=== PATIENT | male | born 1960 | race Hispanic/Latino ===

== ENCOUNTER 2018-12-23 07:45 | Day surgery (SDC) | payer OTHER, MEDICARE ==
[2018-12-23] VITALS (14 sets, daily range): BP systolic 146–202; BP diastolic 72–98
[~2018-12-23] VITALS: Ht 180.3 cm; Wt 85.7 kg
[~2018-12-23 07:45] MED LIST: INSU100I24 SQ; LINA5TAB PO; LISI-617 PO; METF-444 PO; METH2.5T6 PO; MINO100C2 PO; OXYM30MI9 NS
[2018-12-23] MEDS ORDERED: LIDOCAINE PF 2% 5ML ABBOJECT ONE (09:16)
[2018-12-23] MEDS ORDERED: SUCCINYLCHOLINE 200MG/10ML SYR ONE (09:16)
[2018-12-23] MEDS ORDERED: GLYCOPYRROLATE 1 MG/5 ML SYRINGE ONE (09:17)
[2018-12-23] MEDS ORDERED: PROPOFOL 10 MG/ML 20ML VIAL IV ONE (09:17)
[2018-12-23] MEDS ORDERED: NEOSTIGMINE 5MG/5ML SYR IV ONE (09:17)
[2018-12-23] MEDS ORDERED: DEXAMETHASONE SOD PHOSPHATE 10MG/ML 1ML VIAL ONE (09:17)
[2018-12-23] MEDS ORDERED: ROCURONIUM 10MG/1ML SYR 10 MG/ML ML ONE (09:18)
[2018-12-23] MEDS ORDERED: MIDAZOLAM HCL 1 MG/ML 2ML VIAL ONE (09:18)
[2018-12-23] MEDS ORDERED: FENTANYL CITRATE PF 50 MCG/1 ML 2ML VIAL ONE (09:19)
[2018-12-23] MEDS ORDERED: SODIUM CHLORIDE 0.9% 1000ML 1,000 ML IV ONE (09:19)
[2018-12-23] MEDS ORDERED: CEFAZOLIN SODIUM 1 GM VIAL ONE (09:19)
[2018-12-23] MEDS ORDERED: CLINDAMYCIN 900 MG/D5% WATER 50 ML IV ONE (09:27)
[2018-12-23] MEDS ORDERED: CLINDAMYCIN PHOSPHATE 150 MG/ML 6ML VIAL ONE (09:44)
[2018-12-23] MEDS ORDERED: ONDANSETRON HCL 4 MG/2 ML VIAL ONE (11:55)
[2018-12-23] MEDS ORDERED: TYL3 PO (12:39)
[2018-12-23] MEDS ORDERED: CLIN300C3 PO (12:39)
[2018-12-23] MEDS ORDERED: LABETALOL HCL 5 MG/ML 20ML VIAL IV ONE (13:19)
[2018-12-23] MEDS ORDERED: MEPERIDINE-PF 25 MG/ML SYG ONE (13:42)
--- NOTE | 2018-12-23 15:29 | NUR ---
PT. GIVEN D/C INSTRUCTIONS AND RX SCRIPTS CLINDAMYCIN 300MG Q 8 HRS, ACETAMINOPHEN CODEINE 1-2 TABS Q 6HRS PRN FOR PAIN TO LEFT SHOULDER. PT. LEFT BY WHEELCHAIR AND TRANSPORTED BY 3RD LIBERTARIAN TO HIS SISTERS HOUSE WHO HE WAS GOING TO STAY WITH.
[2018-12-25] MEDS ORDERED: CLINDAMYCIN 900 MG/D5% WATER 50 ML IV SCH (06:00)
== END 2018-12-23 19:00 | disposition home or self-care (01) ==
LOC: DAH 07:45
PROVIDERS: ATTEND Orthopaedic Surgery
DX: M06.321 Rheumatoid nodule, right elbow (principal); M06.9 Rheumatoid arthritis, unspecified; Z79.899 Other long term (current) drug therapy; Z79.84 Long term (current) use of oral hypoglycemic drugs; Z98.890 Other specified postprocedural states; Z88.0 Allergy status to penicillin; I12.9 Hypertensive chronic kidney disease with stage 1 through stage 4 chronic kidney disease, or unspecified chronic kidney disease; E11.22 Type 2 diabetes mellitus with diabetic chronic kidney disease; N18.2 Chronic kidney disease, stage 2 (mild)
CPT/HCPCS: 24076; 36415; 82948 ×2; 84132; 88307; A4565; A4606; A4649; J0330; J1100; J2001; J2175; J2250; J2405; J2704; J2710; J3010; J3490 ×3; J7030; Q4051; J0690